=== PATIENT | female | born 1965 | race African-American/Black ===

== ENCOUNTER 2020-05-28 23:57 | Inpatient (IN) | payer OTHER ==
[~2020-05-28] VITALS: Ht 162.6 cm; Wt 93.8 kg
--- NOTE | ~2020-05-28 | EEG ---
[facility] [place] [address] ELECTROENCEPHALOGRAM Name: REA JIMÉNEZ Room #: 242-P [facility] IN M.R.#: [id number] Admission: 05/29/20 Attend Phys: Flavia Horton Discharge: Date of : 61 Report #: [id number] THIS REPORT FOR: //name// DATE OF SERVICE: 05/30/2020 INTERPRETATION: This patient is being evaluated for seizure. EEG was done by placing the electrode by standard 10-20 system of electrode placement. Both referential and sequential montages were used for recording. Background activity in this patient's EEG is about 10 Hz and 40 microvolt. The patient became drowsy and that is associated with bilateral slowing and vertex sharp waves. Photic stimulation is unremarkable. Throughout the record, no active epileptiform activity was noticed. IMPRESSION: This patient's EEG is within normal limits. Thank you very much for this referral. By: [id number] Ko Bazan MD /nt
--- NOTE | ~2020-05-28 | EEG ---
[facility] [place] [address] ELECTROENCEPHALOGRAM Name: REA JIMÉNEZ Room #: 242-P [facility] IN M.R.#: [id number] Admission: 05/29/20 Attend Phys: Flavia Horton Discharge: Date of : 61 Report #: [id number] THIS REPORT FOR: //name// DATE OF SERVICE: 05/29/2020 This patient is being evaluated for seizure. EEG was done by placing the electrode by standard 10-20 system of electrode placement. Both referential and sequential montages were used for recording. Background activity in this patient's EEG is about 11 Hz and 30 microvolt. It is a symmetrical activity. The patient went to sleep and that is associated with bilateral slowing and vertex sharp waves. Photic stimulation is unremarkable. Throughout the record, no active epileptiform activity was noticed. IMPRESSION: This patient's EEG is within normal limits. Thank you very much for this referral. By: [id number] Ko Bazan MD /nt
--- NOTE | ~2020-05-28 | HC ---
[facility] [place] [address] CONSULTATION Name: REA JIMÉNEZ Room #: 242-P [facility] IN M.R.#: [id number] Admission: 05/29/20 Attend Phys: Flavia Brown Discharge: Date of : 61 Report #: [id number] THIS REPORT FOR: cc: [facility] - Clinic physician unknown [facility] - Clinic physician unknown Ko Bazan MD ~ DATE OF SERVICE: 05/29/2020 HISTORY OF PRESENT ILLNESS: This is a 54-year-old female patient who was evaluated by me for seizure. I do not have anybody who is first hand witness for the seizure. The patient says she does not remember anything. From the record, they tell me that she had a witnessed grand mal seizure, which lasted 30 minutes, which is unusual, but can happen and another one was 10 second long seizure. The patient apparently was postictal after that. The patient was nonverbal and was not following any commands. She had COVID vaccine today and it was a Wyatt and Wyatt vaccine. She also had chills and fever after the vaccine. She denies that she has seizure. She denies she is a diabetic and is on any hypoglycemic. No new medication has been started. She has a longstanding history of depression. She takes Zoloft. Her depression becomes severe when she is not taking Zoloft. She never had any seizure or non-epileptiform event in the past or as it called pseudoseizures in the past. REVIEW OF SYSTEMS: Negative for any prior history of seizure. Her magnesium was trace low when she came in. She said she has a lot of spine problem. She used to see pain management. She said she got epidural shots, but she is not on any medication for that. I carried out 14-point review of systems. She said she is not a diabetic. She has no hypertension. She has no eye symptoms or ENT symptoms. She is not complaining of any chest pain, respiratory difficulty or any symptoms. She did have some chills and rigors, but did not have it when I was seeing the patient. Record indicates she does have hypertension and she is on medication for that, but she tells me she is not on any medication. PAST MEDICAL HISTORY: Negative for seizure. FAMILY HISTORY: Negative for any congenital epilepsies. SOCIAL HISTORY: She says she does not smoke or drink alcohol or use any street drugs. PHYSICAL EXAMINATION: Indicates she is alert. When I saw her, she is able to sustain the conversation. She is able to provide me some of the history. She does not remember anything about the seizure, but she can tell me what month it is and speech is intact. She still falls asleep probably because of the medication she received, but when she wakes up, she follows commands. She moves all 4 extremities. Cranial nerve examination, the best I can tell ensuing [facility] [address] [place] [address] CONSULTATION Name: REA JIMÉNEZ Room #: 242-P [facility] IN M.R.#: [id number] Admission: 05/29/20 Attend Phys: Flavia Brown Discharge: Date of : 61 Report #: [id number] asymmetry, but she is not awake enough to do a full detailed examination because she kept falling asleep. There does appear to be some pain when she flexes her neck and to some extent when she extends her neck, but she said she had a herniated disk in the neck and she has longstanding pain in the neck and that is difficult to evaluate. IMPRESSION: By history, this patient had seizure. She received Wyatt and Wyatt vaccine prior that and had chills and rigors with that. Thirty minutes is a pretty long duration for a grand mal seizure, but family many times overestimate the time. We need to confirm that this was an epileptic event and if it is a nonepileptic event whether it has any relationship to the patient's COVID vaccine or whether COVID vaccine __. I ordered a stat EEG in this patient. I also called the MRI and asked them to do the MRI as soon as possible and they said they will get it done. I put an ID consult in this patient and I personally talked to ID, Dr. Dan. I am not sure if she is going to see him or Dr. Aldnaa is going to see her. I will also like to know about their view about doing an LP, but my view will be to proceed with LP. I discussed with her the plan. I discussed with her the potential side effect of contrast MRI. Her BUN and creatinine are normal. So, we will proceed with that and the patient understands the potential side effect. I will also proceed with LP in this patient if ID agree, but I will await their evaluation. The patient is reluctant about LP, but she said she will think about it and we will talk to her again soon. Thank you very much for this referral. By: [id number] Ko Bazan MD /nt
[2020-05-28 23:58] VITALS: BP 125/73
[2020-05-29] VITALS (48 sets, daily range): BP systolic 111–148; BP diastolic 50–93
[2020-05-29 00:40] LABS: ABSOLUTE NEUTROPHILS 6.7 thou/uL (1.4-8.2); BASOPHILS 0.5 % (0.0-2.0); EOSINOPHILS 1.5 % (0.0-3.0); HEMATOCRIT 39.5 % (37.0-47.0); HEMOGLOBIN 13.3 gm/dL (12.0-15.0); LYMPHOCYTES 15.6 % (24.0-44.0); MCH 28.5 pg (26.0-34.0); MCHC 33.7 g/dL (28.0-37.0); MCV 84.5 fL (80.0-100.0); MONOCYTES 7.3 % (1.0-8.0); PLATELET COUNT 270 thou/uL (150-400); POLYS 75.1 % (36.0-66.0); RBC 4.68 mil/uL (4.20-5.00); RDW 14.2 % (10.5-14.5); WBC 8.9 thou/uL (4.0-11.0)
[2020-05-29 00:46] LABS: ANION GAP 11 mmol/L (7-16); BUN 17 mg/dL (7-18); CHLORIDE 103 mmol/L (98-107); CO2 25 mmol/L (21-32); CREATININE 0.9 mg/dL (0.6-1.0); GLUCOSE 106 mg/dL (74-106); POTASSIUM 3.8 mmol/L (3.5-5.1); SODIUM 139 mmol/L (136-145)
[2020-05-29 00:50] LABS: ALBUMIN 3.2 g/dL (3.4-5.0); MAGNESIUM 1.6 mg/dL (1.8-2.4); SALICYLATE < 2.0 mg/dL (2.8-20.0); SGOT 17 U/L (15-37); SGPT 24 U/L (14-59); TOTAL BILIRUBIN 1.1 mg/dL (0.2-1.0); TOTAL PROTEIN 6.3 g/dL (6.4-8.2)
[2020-05-29] MEDS ORDERED: LISINOPRIL10 MG PO (01:16)
[2020-05-29] MEDS ORDERED: ATENOLOL 25 MG25 M1 PO (01:16)
[2020-05-29] MEDS ORDERED: NEURONTIN 300M300 M2 PO (01:17)
[2020-05-29 01:39] LABS: URINE BILIRUBIN NEGATIVE (Negative); URINE BLOOD NEGATIVE (Negative); URINE CLARITY SL CLOUDY; URINE COLOR YELLOW; URINE GLUCOSE-RANDOM* NEGATIVE (Negative); URINE KETONES NEGATIVE (Negative); URINE LEUKOCYTES-REFLEX NEGATIVE (Negative); URINE NITRITE-REFLEX NEGATIVE (Negative); URINE PROTEIN (DIPSTICK) NEGATIVE (Negative)
[2020-05-29 01:47] LABS: AMP/METHAMP Negative (Negative); BARBITURATES Negative (Negative); BENZODIAZEPINES POSITIVE (Negative); COCAINE Negative (Negative); METHADONE Negative (Negative); OPIATES Negative (Negative); PCP Negative (Negative)
[2020-05-29] MEDS ORDERED: LIPITOR 20 MG T20 M1 PO (03:45)
--- NOTE | 2020-05-29 04:18 | NUR ---
Pt admitted from ED approx 0235 with seizures/fever,afebrile on admission. A/OX2-3,confused and states she doesn't know how comes she's in the hospital;pt reoriented and very tearful. C/o headache LOP 9/10,light headedness.FINANCIAL INVESTMENT MANAGER Gelacio notified n.o orders implemented and initiated. Pt uses a cane at home,have a month or so old right hip fx;up with a limp gait.Fall safety reinforced,call light,bed alarm on. Resting with eyes closed at this time after pain meds,will continue to monitor pt.
--- NOTE | 2020-05-29 11:07 | NUR ---
PT ADMITTED THIS DAY RELATED TO SEIZURE, FEVER. CM REVIEWED CHART. CM ATTEMPTED TO VISIT WITH PT AND SIG OTHER AT BEDSIDE THIS DAY BUT PT IS ACTIVELY HAVING SIZURES AT TIME OF ATTEMTPED VISIT. PT IS TO TRANSFER TO ICU 242 THIS DAY. CM TO FOLLOW INDICATED WITH DC PLANNING.
--- NOTE | 2020-05-29 13:25 | NUR ---
AT APPX 1130, PT ARRIVED FROM 4W VIA BED TO ICU ROOM 242 AFTER REPORT RECEIVED FROM VAISHALI BEY. PT ASSISTED TO ICU BED, CONTINUOUS CARDIAC AND SPO2 MONITORING W/ FREQUENT VS PLACED AND IN PROGRESS. PT DROWSY, BUT AWAKENS TO VOICE AND IS CONFUSED TO PLACE AND TIME. REORIENTED TO ICU AND ROUTINE. PT'S SIG OTHER SENT TO WAITING ROOM WHILE PT IS STABILIZED AND SETTLED.
--- NOTE | 2020-05-29 14:33 | NUR ---
PT IN MRI.
--- NOTE | 2020-05-29 15:26 | NUR ---
PT BACK TO ICU ROOM. MONITORING CONTINUES. IV FLUIDS RESTARTED UPON RETURN TO ROOM. PT C/O 11/09 HEADACHE "ALL OVER" OPPOSED TO EARLIER WHEN IT WAS "JUST IN THE BACK." CALL PLACED TO DR. NICOLE. PT INSTRUCTED ON ACTIVITY RESTRICTIONS. PT VERBALIZED UNDERSTANDING.
[2020-05-29 16:09] LABS: CSF GLUCOSE 61 mg/dL (40-70)
[2020-05-29 16:38] LABS: APTT 26.1 Seconds (24.5-32.8); PROTIME 10.9 Seconds (9.3-11.4)
[2020-05-29 16:42] LABS: CSF CLARITY CLEAR; CSF COLOR COLORLESS; CSF RBC 0 /mm3; CSF WBC 2 /mm3 (0-10); VOLUME 16.5 ml
--- NOTE | 2020-05-29 20:20 | NUR ---
Received awake on bed. Due medications given as prescribed. On seizure precautions. On telemetry; no complains and signs of chest pain, crushing sensation and heaviness. Assisted in ADLs. Drowsy but rousable. On regular diet- tolerating well; no nausea, no vomiting and no abdominal pain noted. Continent of bowel and bladder, assisted in using bedside commode; falls bundle in place. With SL at R AC; NS at 100cc/hr, infusing well at L AC. no skin issues noted. Falls bundle in place. Pt with 6 episodes of seizures noted. (10:26am to 10:29am, 10:38am to 10:40am, 10:41 to 10:42, 10:43 to 10:45, 10:47 to 10:49 and 10:51 to 10:52)- relayed to Dr Brown informed re: this; stat neuro consult called in; EEG ordered; Keppra given as ordered; to transfer to ICU now- house sup Olesya informed, a/w room. Olesya called back- room number given [id number]. Pt's significant other present at bedside- update and new room number given. Pt transferred at approx 11:30am via bed; personal belongings with her; transferred safely. Report given to VAISHALI Allison.
[2020-05-30] VITALS (44 sets, daily range): BP systolic 88–203; BP diastolic 35–130
--- NOTE | 2020-05-30 07:18 | NUR ---
ASSUMMED CARE OF THIS PATIENT FROM THE NIGHT NURSE, MONSERRAT. RN
[2020-05-30] MEDS ORDERED: KEPPRA XR500 MG PO (08:01)
--- NOTE | 2020-05-30 08:15 | NUR ---
chart review, in for seizure possible after covid vaccine reported by pt. leandra unable to visit with dany crystal on cell phone talking at this time.
--- NOTE | 2020-05-30 09:10 | NUR ---
ON PHONE WITH DAUGHTER AND NOTED TO HAVE TONIC CLONIC MOVEMENT OF ALL EXTERMITIES, MOANS AT TIMES. NO EMESIS OR INCONTIENCE NOTED.
--- NOTE | 2020-05-30 09:17 | NUR ---
0912 INITIAL SEIZURE LASTED GAYLE 90 SECONDS 0913 HAD ANOTHER SEIZURE LASTING GAYLE 45 SECONDS, MOANING AND SHAKING TREMORS RAISES ARMS UP. 0915 PATIENT MOANING AND TREMORS AND SHAKING OF BODY LASTING GAYLE 30 SECS. 0917 ATIVAN GIVEN
--- NOTE | 2020-05-30 09:20 | NUR ---
0918 HAD ANOTHER SEIZURES MOANS AND LASTED GAYLE 30 SECONDS [address] NICOLE UPDATED ON PATIENT STATUS.
--- NOTE | 2020-05-30 09:35 | NUR ---
0926 DR GROVE NOTIFED OF PATIENT STATUS ORDERS NOTED [id number] PATIENT IS ALERT AND RESPONSIVE.
--- NOTE | 2020-05-30 09:55 | NUR ---
AT 0950 PATIENT TALKING TO HER SISTER ON THE PHONE, TENSED UP, MOANING AND HAD GAYLE 135 SEC OF SHAKING AND TREMORS OF ENTIRE BODY.
--- NOTE | 2020-05-30 10:32 | NUR ---
DR GROVE IN AT 1010 AND UPDATED ON PATIENT STATUS. DIESEL SERVICE JOURNEYMAN HERE FOR BEDSIDE EEG. PATIENT DOES STATE THAT SHE HAS MIGRAINE HEADACHES. REQUESTING PAIN MEDS PRIOR TO LAST SEIZURE. WILL CONTINUE TO MONITOR.
--- NOTE | 2020-05-30 11:00 | NUR ---
BEDSIDE EEG IN PROGRESS.
--- NOTE | 2020-05-30 12:30 | NUR ---
ATTEMPTING TO RESTART IV. PATIENT NOTED TO HAVE A 10 SEC EPISODE OF SEIZURE LIKE ACTIVITY, MOANING. INFORMED THAT WE WERE TRYING TO GET HER IV RESTARTED, SEIZURE LIKE ACTIVITY STOPPED. EYES SL OPEN, TEARS NOTED. WILL CONTINUE TO MONITOR.
[2020-05-30 16:06] LABS: HIV ANTIBODY Non Reactive (Non Reactive)
--- NOTE | 2020-05-30 18:32 | NUR ---
PATIENT IS PROGRESSING TOWARDS OUTCOME GOALS SHE HAS HAD NO FUTHER SEIZURES THIS AFTERNOON, VISITING WITH FAMILY VIA PHONE. CONTINUED TO C/O HEADACHE AFTER INITIAL DILAUDID GIVEN, DR NICOLE NOTIFIED AND ORDERS NOTED. BETTER PAIN MANAGEMENT AT THE PRESENT TIME. C/O ITCHING, DR NICOLE NOTIFIED AND BENADRYL GIVEN.
--- NOTE | 2020-05-30 21:18 | NUR ---
SEIZURE LAST 3MINUTES JERKING WITH ARMS RIGID AND NONCOHERENT. PT MOANING WITH ACTIVITY NOT INCONTINENT WITH ACTIVITY. ATIVAN GIVEN AT THIS TIME FOR PLAN OF CARE. RAILS REMAIN PADDED FOR PT SAFETY.
--- NOTE | 2020-05-30 21:50 | NUR ---
TRANSFER TO [facility] REPORT GIVEN TO [facility] HERE TO RECEIVE PT REPORT GIVEN ON PT STATUS AT THIS TIME.
[2020-05-31 03:06] LABS: SYPHILIS AB Reactive (Non Reactive)
[2020-06-01 16:06] LABS: CSF VDRL Non Reactive (Non Rea:<1:1)
[2020-06-01 23:06] LABS: B.burgdorf.IgG Negative (()); B.burgdorf.IgM Negative (())
== END 2020-05-30 21:57 | disposition short-term general hospital (02) | DRG 101 ==
LOC: ER 23:57 → 4W 05-29 02:02 → ICU 05-29 02:02 → EROBS 05-29 02:02 → 4W 05-29 02:18 → ICU 05-29 12:19
PROVIDERS: Emergency Medicine; Psychiatry & Neurology Neuromuscular Medicine; Specialist; ADMIT Hospitalist; ATTEND Hospitalist
PROC: 009U3ZX Drainage of Spinal Canal, Percutaneous Approach, Diagnostic (ICD-10-PCS; principal; 2020-05-29)
PROC: 00JU3ZZ Inspection of Spinal Canal, Percutaneous Approach (ICD-10-PCS; principal; 2020-05-29)
PROC: B01B1ZZ Fluoroscopy of Spinal Cord using Low Osmolar Contrast (ICD-10-PCS; principal; 2020-05-29)
DX: G40.89 Other seizures (principal); E78.00 Pure hypercholesterolemia, unspecified; I10 Essential (primary) hypertension; G89.29 Other chronic pain; G56.01 Carpal tunnel syndrome, right upper limb; E83.42 Hypomagnesemia; M54.5 Low back pain; F32.9 Major depressive disorder, single episode, unspecified; T50.B95A Adverse effect of other viral vaccines, initial encounter; G43.909 Migraine, unspecified, not intractable, without status migrainosus; Z79.899 Other long term (current) drug therapy; Z88.0 Allergy status to penicillin; Z90.710 Acquired absence of both cervix and uterus; Y92.89 Other specified places as the place of occurrence of the external cause
CPT/HCPCS: 10078